=== PATIENT | female | born 2000 | race Caucasian/White ===

== ENCOUNTER → 2020-09-30 | Outpatient (REF) | payer OTHER | LOC: M LAB 22:10 | PROVIDERS: ATTEND Physician Assistant Medical | DX: Z11.52 Encounter for screening for COVID-19 (principal) ==

== ENCOUNTER 2020-10-30 10:28 | Emergency (ER) | payer OTHER ==
[~2020-10-30] VITALS: Ht 160 cm; Wt 67.2 kg
[2020-10-30] MEDS ORDERED: NS 1,000 ML IV ONE (11:30)
[2020-10-30] MEDS ORDERED: PHEN-501 (11:43)
[2020-10-30] MEDS ORDERED: CEPH500C (11:43)
[2020-10-30] MEDS ORDERED: NITR100C2 (11:43)
[2020-10-30 11:54] LABS: BASO # 0.1 10^3/uL (0.0-0.2); BASO % 0.5 % (0.0-1.0); EOS # 0.1 10^3/uL (0.0-0.5); EOS % 0.9 % (0.0-3.0); HEMATOCRIT 44.9 % (36.0-47.0); HEMOGLOBIN 14.8 g/dl (12.0-15.5); LYMPH # 2.2 10^3/uL (1.5-5.0); LYMPH % 22.2 % (24.0-44.0); MEAN CORPUSCULAR HEMOGLOBIN 28.6 pg (27.0-33.0); MEAN CORPUSCULAR VOLUME 86.8 fl (80.0-96.0); MONO # 0.4 10^3/uL (0.0-0.8); MONO % 4.1 % (0.0-5.0); NEUTROPHILS # 7.2 10^3/uL (1.5-8.5); PLATELET COUNT, AUTOMATED 353 10^3/uL (150-450); RED BLOOD COUNT 5.17 10^6/uL (4.00-5.40)
[2020-10-30 12:17] LABS: HCG, SERUM QUALITATIVE NEGATIVE (NEGATIVE)
[2020-10-30 12:36] LABS: ALT/SGPT 26 U/L (12-78); BILIRUBIN,DIRECT < 0.1 MG/DL (0.0-0.2); BILIRUBIN,TOTAL 0.4 MG/DL (0.2-1.0); BLOOD UREA NITROGEN 9 MG/DL (7-18); CALCIUM LEVEL 9.9 MG/DL (8.5-10.1); CARBON DIOXIDE LEVEL 25 MEQ/L (21-32); CHLORIDE LEVEL 104 MEQ/L (98-107); CREATININE FOR GFR 0.78 MG/DL (0.55-1.30); GLUCOSE, FASTING 77 MG/DL (70-100); LIPASE 58 U/L (73-393); POTASSIUM SERUM 6.7 MEQ/L (3.5-5.1); SODIUM LEVEL 135 MEQ/L (136-145); TOTAL PROTEIN 8.8 GM/DL (6.4-8.2)
--- NOTE | 2020-10-30 13:06 | REP ---
INDICATION: R flank paimn radiating to abd. COMPARISON: None. TECHNIQUE: Supine abdominal film. KUB. FINDINGS: Bowel gas pattern is normal. Psoas margins and flank stripes are intact. No mass or organomegaly. There is a 7 mm calcification overlying the lower pole of the left kidney which may be an intrarenal calculus. Alternatively, this could conceivably be rib cartilage although it is asymmetric. No other urinary tract calculus seen. IMPRESSION: Normal bowel gas pattern. Possible 7 mm calcification lower pole left kidney versus overlying rib cartilage calcification. <Electronically signed by Enzo Yoo > 10/30/20 1721
--- NOTE | 2020-10-30 14:18 | REP ---
INDICATION: R flank pain. COMPARISON: Comparison is made with today's KUB.. TECHNIQUE: Urinary tract sonography. FINDINGS: Scanning at the level of the urinary bladder shows no abnormality. Bilateral emptying ureteral jets are observed. Renal cortical echogenicity pattern is normal bilaterally and contours are smooth. There is no evidence of hydronephrosis, cyst, mass, or calculus in either kidney. The right kidney measures 10.1 x 4.3 x 3.7 cm. Left renal dimensions are 9.2 x 4.6 x 4.0 cm. IMPRESSION: Normal urinary tract sonography. <Electronically signed by Enzo Yoo > 10/30/20 [id number]
[2020-10-30] MEDS ORDERED: ONDA4TAB6 PO (14:43)
[2020-10-30 14:47] VITALS: BP 123/70
== END 2020-10-30 14:56 | disposition home or self-care (01) ==
LOC: M ED 10:28
DX: M54.5 Low back pain (principal); R11.2 Nausea with vomiting, unspecified; R19.7 Diarrhea, unspecified; R93.7 Abnormal findings on diagnostic imaging of other parts of musculoskeletal system; Z88.8 Allergy status to other drugs, medicaments and biological substances

== ENCOUNTER → 2021-02-10 | Outpatient (REF) | payer OTHER ==
[~2021-02-10] MED LIST: CEPH500C; NITR100C2; ONDA4TAB6 PO; PHEN-501
[2021-02-10 13:35] LABS: APPEARANCE, URINE CLEAR (CLEAR); BACTERIA, URINE AUTO NEGATIVE (NEGATIVE); BILIRUBIN, URINE AUTO NEGATIVE (NEGATIVE); BLOOD, URINE BLOOD NEGATIVE (NEGATIVE); COLOR, URINE STRAW (YELLOW); GLUCOSE, URINE (UA) AUTO NEGATIVE (NEGATIVE); KETONE, URINE AUTO NEGATIVE (NEGATIVE); LEUKOCYTE ESTERASE, URINE AUTO NEGATIVE (NEGATIVE); MUCUS, URINE SMALL (NEGATIVE); NITRITE, URINE AUTO NEGATIVE (NEGATIVE); PROTEIN, URINE AUTO NEGATIVE (NEGATIVE); RBC, URINE AUTO 0 /HPF (0-3); SPECIFIC GRAVITY URINE AUTO 1.004 (1.002-1.035); SQUAMOUS EPITHELIAL CELL UR AU 0 /HPF (0-6); UROBILINOGEN, URINE AUTO 0.2 mg/dL (0.0-2.0); WBC, URINE AUTO 1 /HPF (0-3)
== END ==
LOC: M SMT 12:29
PROVIDERS: ATTEND Nurse Practitioner Women's Health
DX: Z87.440 Personal history of urinary (tract) infections (principal)
CPT/HCPCS: 51798; 81001; 87086; G0463

== ENCOUNTER → 2021-07-01 | Outpatient (CLI) | payer OTHER | LOC: M LABSMTC 10:10 | PROVIDERS: ATTEND Pediatrics | DX: Z20.822 Contact with and (suspected) exposure to COVID-19 (principal) | CPT/HCPCS: C9803; U0003 ==

== ENCOUNTER → 2023-04-07 | Outpatient (REF) | payer OTHER | LOC: M SFHCWAGY 18:01 | PROVIDERS: ATTEND Nurse Practitioner Family | DX: Z12.4 Encounter for screening for malignant neoplasm of cervix (principal); R87.610 Atypical squamous cells of undetermined significance on cytologic smear of cervix (ASC-US) | CPT/HCPCS: 87624; G0123 ==